=== PATIENT | female | born 1985 | race Caucasian/White ===

== ENCOUNTER 2018-06-14 19:04 | Emergency (ER) | payer OTHER ==
[~2018-06-14] VITALS: Ht 165.1 cm; Wt 118.2 kg
[2018-06-14 19:15] VITALS: TEMP 97.5
[2018-06-14 19:50] LABS: BASO # 0.1 (0.0-0.2); BASO % 0.6 % (0.0-2.0); EOS # 0.3 (0.0-0.7); EOS % 2.2 % (0-4.0); GRAN # 9.5 (1.4-6.5); HEMATOCRIT 41.9 % (37.0-47.0); HEMOGLOBIN 14.4 g/dl (12.5-16.0); LYMPH # 4.9 (1.2-3.4); LYMPH % 30.7 % (20.0-51.0); MEAN CELL VOLUME 88 fl (80.0-100.0); MEAN CORPUSCULAR HEMOGLOBIN 30 pg (27.0-31.0); MEAN CORPUSCULAR HGB CONC 34 g/dl (33.0-37.0); MEAN PLATELET VOLUME 9.7 fl (7.4-10.4); MONO % 6.2 % (1.7-9.3); PLATELET COUNT 345 K/mm3 (130-400); RED BLOOD COUNT 4.75 M/mm3 (4.10-5.30); REDCELL DISTRIBUTION WIDTH-CV 12.3 % (11.5-14.5)
[2018-06-14 20:26] LABS: ALBUMIN 3.6 gm/dL (3.5-5.0); BILIRUBIN,TOTAL 0.4 mg/dL (0.0-1.0); C-REACTIVE PROTEIN 2.1 mg/dL (0.0-0.9); CALCIUM 8.9 mg/dL (8.4-10.2); CREATININE, serum 0.87 mg/dL (0.52-1.25); POTASSIUM 3.3 mmol/L (3.4-5.0); TOTAL PROTEIN 6.7 gm/dL (6.4-8.2)
[2018-06-14 21:28] LABS: COLLECTION METHOD CLEAN CATCH
[2018-06-14 21:34] LABS: MUCOUS Present /lpf; PH 7 (5-8); SQUAMOUS EPITHELIAL 0-2 /hpf; URINE APPEARANCE Hazy; URINE BACTERIA None Seen /hpf; URINE BILIRUBIN Negative (NEGATIVE); URINE BLOOD 1+ (NEGATIVE); URINE COLOR Yellow; URINE GLUCOSE Negative (NEGATIVE); URINE KETONE Trace (NEGATIVE); URINE LEUKOCYTE ESTERASE Negative (NEGATIVE); URINE NITRATE Negative (NEGATIVE); URINE PROTEIN(semi-quant) 1+ (NEGATIVE); URINE RBC 0-2 /hpf; URINE UROBILINOGEN Negative (NEGATIVE)
[2018-06-14 22:34] VITALS: BP 117/80; PULSE 80
== END 2018-06-14 22:44 | disposition home or self-care (01) ==
LOC: COL.ER 19:04
PROVIDERS: Emergency Medicine
DX: I95.9 Hypotension, unspecified (principal); R55 Syncope and collapse; Z98.51 Tubal ligation status
CPT/HCPCS: J2550; J7030

== ENCOUNTER 2019-01-02 21:03 | Emergency (ER) | payer OTHER ==
[~2019-01-02] VITALS: Ht 167.6 cm; Wt 115.0 kg
[2019-01-02 21:09] VITALS: TEMP 97.3
[2019-01-02] MEDS ORDERED: VALIUM 5MG T5 MG/TAB PO (22:00)
[2019-01-02] MEDS ORDERED: ASHLYNA1 TAB PO (22:13)
[2019-01-02 22:58] VITALS: BP 122/80; PULSE 85
== END 2019-01-02 22:58 | disposition home or self-care (01) ==
LOC: COL.ER 21:03
DX: R42 Dizziness and giddiness (principal); Z98.51 Tubal ligation status

== ENCOUNTER 2021-09-05 16:44 | Inpatient (IN) | payer OTHER ==
[~2021-09-05] VITALS: Ht 165.1 cm; Wt 107.4 kg
[~2021-09-05 16:44] MED LIST: ASHLYNA1 TAB PO; VALIUM 5MG T5 MG/TAB PO
[2021-09-05 17:12] LABS: BASO % 0.1 % (0.0-2.0); GRAN # 9.3 K/mm3 (1.4-6.5); GRAN % 87.2 % (42.2-75.2); HEMATOCRIT 45.9 % (37.0-47.0); HEMOGLOBIN 16.1 g/dl (12.5-16.0); LYMPH # 0.9 K/mm3 (1.2-3.4); LYMPH % 8.7 % (20.0-51.0); MEAN CELL VOLUME 88 fl (80.0-100.0); MEAN CORPUSCULAR HEMOGLOBIN 31 pg (27-31); MEAN CORPUSCULAR HGB CONC 35 g/dl (33.0-37.0); MEAN PLATELET VOLUME 9.3 fl (7.4-10.4); MONO # 0.3 K/mm3 (0.1-0.6); MONO % 3.1 % (1.7-9.3); PLATELET COUNT 256 K/mm3 (130-400); RED BLOOD COUNT 5.24 M/mm3 (4.10-5.30); REDCELL DISTRIBUTION WIDTH-CV 11.7 % (11.5-14.5)
[2021-09-05 17:12] LABS: ARTERIAL BLD GAS O2 SATURATION 93.3 % (92-100); ARTERIAL BLD GAS TCO2 CT 21.4; ARTERIAL BLOOD GAS BASE EXCESS -1.6 (-2-2); ARTERIAL BLOOD GAS HCO3 20.5 meq/L (22-26); ARTERIAL BLOOD GAS PCO2 28.6 mmHg (35-45); ARTERIAL BLOOD GAS PO2 62.5 mmHg (80-100); ARTERIAL BLOOD GAS pH 7.47 (7.35-7.45)
[2021-09-05 17:30] LABS: ALANINE AMINOTRANSFERASE 111 U/L (0-55); ALBUMIN 2.8 gm/dL (3.5-5.0); ALKALINE PHOSPHATASE 121 U/L (40-150); ANION GAP 17 mmol/L (7-16); AST,SGOT 96 U/L (5-34); BILIRUBIN,TOTAL 0.9 mg/dL (0.2-1.2); BLOOD UREA NITROGEN 8 mg/dL (7-19); CALCIUM 8.8 mg/dL (8.4-10.2); CARBON DIOXIDE 20 mmol/L (22-29); CHLORIDE 102 mmol/L (98-107); CREATININE, serum 0.75 mg/dL (0.57-1.11); GLUCOSE 125 mg/dL (70-99); POTASSIUM 3.4 mmol/L (3.5-4.5); SODIUM 139 mmol/L (136-145); TOTAL PROTEIN 7.4 gm/dL (6.2-8.1)
[2021-09-05 17:42] LABS: TROPONIN-I < 0.010 ng/mL (0.00-0.033)
--- NOTE | 2021-09-05 21:15 | NUR ---
Brook Catalan APRN notified of critical d dimer, pt still in ED, will go to CT scan prior to arrival
[2021-09-05 21:19] LABS: INR 1.1 (0.8-3.0); PROTHROMBIN TIME 12.7 SECONDS (9.7-12.8)
[2021-09-05 21:29] LABS: C-REACTIVE PROTEIN 21.03 mg/dL (0.00-0.50); MAGNESIUM 2.3 mg/dL (1.6-2.6)
[2021-09-05 21:40] LABS: COLLECTION METHOD CLEAN CATCH
[2021-09-05 21:48] LABS: MUCOUS Present (NOT PRESENT); PH 6 (5-8); SQUAMOUS EPITHELIAL 0-2 /hpf (0-10); URINE APPEARANCE Clear (CLEAR/HAZY); URINE BACTERIA Occasional (NONE SEEN); URINE BILIRUBIN Negative (NEGATIVE); URINE BLOOD 1+ (NEGATIVE); URINE COLOR Yellow (YELLOW); URINE GLUCOSE Negative (NEGATIVE); URINE KETONE 1+ (NEGATIVE); URINE LEUKOCYTE ESTERASE Negative (NEGATIVE); URINE NITRATE Negative (NEGATIVE); URINE PROTEIN(semi-quant) 1+ (NEGATIVE); URINE UROBILINOGEN Negative (NEGATIVE)
[2021-09-05 22:00] VITALS: BP 126/72; PULSE 112; TEMP 98.8
[2021-09-05] MEDS ORDERED: SYNTHROID0.075 MG/T (22:40)
[2021-09-05] MEDS ORDERED: IMITREX100 MG PO ×2 (22:42→23:01)
[2021-09-05] MEDS ORDERED: SIMPESSE 0.15-1 EACH PO (23:00)
[2021-09-05] MEDS ORDERED: SYNTHROID0.075 MG/T PO (23:01)
[2021-09-06] VITALS (7 sets, daily range): BP systolic 120–146; BP diastolic 71–85; PULSE 95–149; TEMP 97.3–99.3
[2021-09-06 03:31] LABS: ARTERIAL BLD GAS O2 SATURATION 91.3 % (92-100); ARTERIAL BLD GAS TCO2 CT 23.4; ARTERIAL BLOOD GAS BASE EXCESS -0.3 (-2-2); ARTERIAL BLOOD GAS HCO3 22.5 meq/L (22-26); ARTERIAL BLOOD GAS PCO2 31.8 mmHg (35-45); ARTERIAL BLOOD GAS PO2 56.6 mmHg (80-100); ARTERIAL BLOOD GAS pH 7.47 (7.35-7.45)
--- NOTE | 2021-09-06 06:35 | NUR ---
Dr Franco notified of consult
[2021-09-06 07:08] LABS: BASO % 0.1 % (0.0-2.0); GRAN # 10.3 K/mm3 (1.4-6.5); GRAN % 87.8 % (42.2-75.2); HEMATOCRIT 40.9 % (37.0-47.0); LYMPH # 0.9 K/mm3 (1.2-3.4); LYMPH % 7.4 % (20.0-51.0); MEAN CELL VOLUME 88 fl (80.0-100.0); MEAN CORPUSCULAR HEMOGLOBIN 30 pg (27-31); MEAN CORPUSCULAR HGB CONC 35 g/dl (33.0-37.0); MEAN PLATELET VOLUME 9.5 fl (7.4-10.4); MONO # 0.4 K/mm3 (0.1-0.6); MONO % 3.7 % (1.7-9.3); PLATELET COUNT 279 K/mm3 (130-400); RED BLOOD COUNT 4.67 M/mm3 (4.10-5.30); REDCELL DISTRIBUTION WIDTH-CV 11.9 % (11.5-14.5)
--- NOTE | 2021-09-06 07:09 | NUR ---
pt admitted to room 305 from ED per cart @2200. CT scan done on way to floor. pt on 15L NRB mask, O2 sats 88-89%, RT notified, Brook Catalan APRN here to see pt, Airvo ordered. pt has LR @75cc/hr per RAC peripheral line. pt using BSC ad shirlene, freq stools this shift, soft, formed, no N/V/D. pt placed on bipap this am after ABG drawn. resting in bed, alert and oriented.
[2021-09-06 07:20] LABS: HEMOGLOBIN 14.1 g/dl (12.5-16.0)
[2021-09-06 07:40] LABS: ALBUMIN 2.4 gm/dL (3.5-5.0); BILIRUBIN,TOTAL 0.5 mg/dL (0.2-1.2); CALCIUM 8.3 mg/dL (8.4-10.2); CREATININE, serum 0.64 mg/dL (0.57-1.11); TOTAL PROTEIN 6.6 gm/dL (6.2-8.1)
--- NOTE | 2021-09-06 10:11 | NUR ---
Patient sitting in bed eating breakfast upon entering the room. Patient is currently on Airvo (60L @ 95%). Patient told this RN that when she gets up to use the BSC she goes into a "coughing fit". This RN instructed the patient to use her call light when she needs to use the BSC, especially if she starts to experience any dizziness or SOB. At this time, the plan is for the patient to move to ICU per Dr. Moreira.
--- NOTE | 2021-09-06 16:13 | NUR ---
RHYTHM CHANGE- SR/ST to possible AVIB RVR. Nurse notified EKG placed.
--- NOTE | 2021-09-06 19:15 | NUR ---
This RN received call at approx. 1615 that the patient was in A-fib. This RN checked the tele monitor and patient was in A-fib w/ RVR. Dr. Moreira was at the desk and notified. EKG was ordered. Patient was started on an amiodarone bolus by Cheyenne Sharma RN. Cardiology was consulted. Patient was switched from airvo to bipap to maintain sats above 90%. Patient instructed to call if she needs to use the BSC, and to not get up on her own.
[2021-09-07 00:38] VITALS: BP 142/82; PULSE 83; TEMP 97.7
[2021-09-07 04:19] LABS: ARTERIAL BLD GAS O2 SATURATION 97.9 % (92-100); ARTERIAL BLD GAS TCO2 CT 25.1; ARTERIAL BLOOD GAS BASE EXCESS 1.1 (-2-2); ARTERIAL BLOOD GAS PCO2 33.7 mmHg (35-45); ARTERIAL BLOOD GAS PO2 100.9 mmHg (80-100); ARTERIAL BLOOD GAS pH 7.47 (7.35-7.45)
[2021-09-07 05:03] VITALS: BP 144/79; PULSE 94; TEMP 98.5
--- NOTE | 2021-09-07 05:50 | NUR ---
Resting quietly in room, no c/o at this time, amiodarone gtt ongoing patient tolerating well, Bipap decreased to 70% FIO2 - patient tolerating well, no s/s of hypo/hyper glycemia, telemetry in use running NSR at this time, will continue to monitor.
[2021-09-07 07:24] LABS: HEMATOCRIT 42.6 % (37.0-47.0); HEMOGLOBIN 14.5 g/dl (12.5-16.0); MEAN CELL VOLUME 90 fl (80.0-100.0); MEAN CORPUSCULAR HEMOGLOBIN 31 pg (27-31); MEAN CORPUSCULAR HGB CONC 34 g/dl (33.0-37.0); MEAN PLATELET VOLUME 9.8 fl (7.4-10.4); PLATELET COUNT 339 K/mm3 (130-400); RED BLOOD COUNT 4.72 M/mm3 (4.10-5.30)
[2021-09-07 07:30] LABS: ALBUMIN 2.4 gm/dL (3.5-5.0); BILIRUBIN,TOTAL 0.4 mg/dL (0.2-1.2); CALCIUM 8.5 mg/dL (8.4-10.2); CREATININE, serum 0.68 mg/dL (0.57-1.11); POTASSIUM 3.6 mmol/L (3.5-4.5); TOTAL PROTEIN 6.5 gm/dL (6.2-8.1)
[2021-09-07 07:52] LABS: C-REACTIVE PROTEIN 9.6 mg/dL (0.00-0.50); MAGNESIUM 2.2 mg/dL (1.6-2.6)
[2021-09-07 08:30] VITALS: BP 142/85; PULSE 89; TEMP 98.2
[2021-09-07 09:44] LABS: BAND 10 % (0-10); LYMPHOCYTE 13 % (20.0-51.0); NEUTROPHILS 74 % (42.0-75.2); PLATELET ESTIMATE NORMAL (NORMAL)
--- NOTE | 2021-09-07 09:55 | NUR ---
Patient sitting in bed watching television upon entering the room. Patient assisted to the bathroom by this RN. All medications administered. Patient remains on amiodarone drip and is tolerating it well and in NSR. Patient on Airvo (60L @ 93%).
--- NOTE | 2021-09-07 10:49 | NUR ---
Quality Intern contacted patient by phone as [facility] Patient lives in [place] with her , Marco (ph#[phone]) and sees Dr. Bone for primary care. Patient obtains medications from [facility] [address] with no difficulties. Patient does not use any DME and is normally independent with ADLS. Patient is currently on 60 liters of oxygen but normally does not need it. Patient does not have Advance Directives and her would be her legal next of kin. Patient plans on returning home upon discharge. Discharge Plan: Home
[2021-09-07 11:43] VITALS: BP 120/71; PULSE 84; TEMP 98.6
[2021-09-07 15:44] VITALS: BP 136/80; PULSE 91; TEMP 98.3
--- NOTE | 2021-09-07 17:02 | NUR ---
Amiodarone gtt was discontinued. Patient tolerating PO medication well. Remains on airvo (60L @ 95%) .. Patient able to use BSC independtly but reminded to call if she begins to experience any SOB, dizziness, or heart palpitations.
[2021-09-07 20:05] VITALS: BP 141/80; PULSE 91; TEMP 98.2
--- NOTE | 2021-09-07 22:40 | NUR ---
Patient laying in bed and watching TV upon enter the room. Patient alert and oriented. Patient denies any pain or discomfort. Denies SOB, N/V, or diarrhea. Patient currently on Arivo 60L/95%. SPO2 97% on Airvo. No acute respiratory distress noted at this time. All scheduled meds given per NOV. Ice water provided per patient request. Call light in reach. Will continue to monitor.
[2021-09-08 00:28] VITALS: BP 133/88; PULSE 93; TEMP 98.2
[2021-09-08 03:37] VITALS: BP 133/72; PULSE 89; TEMP 97.4
--- NOTE | 2021-09-08 06:59 | NUR ---
PATIENT PLACED ON AIRVO AT 94% AND FLOW OF 60 LPM. APPREARS COMFORTABLE.
[2021-09-08 07:02] LABS: HEMATOCRIT 41.9 % (37.0-47.0); HEMOGLOBIN 14.2 g/dl (12.5-16.0); MEAN CELL VOLUME 91 fl (80.0-100.0); MEAN CORPUSCULAR HEMOGLOBIN 31 pg (27-31); MEAN CORPUSCULAR HGB CONC 34 g/dl (33.0-37.0); MEAN PLATELET VOLUME 9.4 fl (7.4-10.4); PLATELET COUNT 386 K/mm3 (130-400); RED BLOOD COUNT 4.61 M/mm3 (4.10-5.30); REDCELL DISTRIBUTION WIDTH-CV 12.3 % (11.5-14.5)
[2021-09-08 07:26] LABS: ALBUMIN 2.4 gm/dL (3.5-5.0); BILIRUBIN,TOTAL 0.5 mg/dL (0.2-1.2); C-REACTIVE PROTEIN 5.21 mg/dL (0.00-0.50); CALCIUM 8.3 mg/dL (8.4-10.2); CREATININE, serum 0.67 mg/dL (0.57-1.11); TOTAL PROTEIN 6.1 gm/dL (6.2-8.1)
[2021-09-08 07:57] LABS: LYMPHOCYTE 19 % (20.0-51.0); NEUTROPHILS 77 % (42.0-75.2); PLATELET ESTIMATE NORMAL (NORMAL)
[2021-09-08 08:36] VITALS: BP 124/66; PULSE 96; TEMP 98.4
[2021-09-08 12:17] VITALS: BP 127/81; PULSE 79; TEMP 97.6
[2021-09-08 16:18] VITALS: BP 152/86; PULSE 84; TEMP 97.5
[2021-09-08 19:55] VITALS: BP 139/74; PULSE 88; TEMP 97.6
--- NOTE | 2021-09-08 21:54 | NUR ---
Patient sitting up in bed and watching TV upon enter the room. Patient A/Ox4. Patient denies chest pain, SOB, N/V or diarrhea. Patient states she is eating well and drinking enough fluid. Patient currently on Airvo 60L/95%. Breathing even and unlabored while at rest. No acute respiratory distress noted at this time. All scheduled meds given per NOV. Call light in reach. Will continue to monitor.
[2021-09-09 00:43] VITALS: BP 126/85; PULSE 79; TEMP 98.3
[2021-09-09 05:22] VITALS: BP 121/70; PULSE 74; TEMP 98
--- NOTE | 2021-09-09 05:45 | NUR ---
Patient on Bipap throughout the night. VS stable. No acute distress noted throughout the night. Call light in reach. Will continue to monitor.
[2021-09-09 06:01] LABS: ARTERIAL BLD GAS O2 SATURATION 97.8 % (92-100); ARTERIAL BLD GAS TCO2 CT 21.5; ARTERIAL BLOOD GAS BASE EXCESS -3.1 (-2-2); ARTERIAL BLOOD GAS HCO3 20.4 meq/L (22-26); ARTERIAL BLOOD GAS PCO2 32.7 mmHg (35-45); ARTERIAL BLOOD GAS PO2 102.8 mmHg (80-100); ARTERIAL BLOOD GAS pH 7.41 (7.35-7.45)
[2021-09-09 06:42] LABS: HEMATOCRIT 40.9 % (37.0-47.0); HEMOGLOBIN 13.7 g/dl (12.5-16.0); MEAN CELL VOLUME 90 fl (80.0-100.0); MEAN CORPUSCULAR HEMOGLOBIN 30 pg (27-31); MEAN CORPUSCULAR HGB CONC 34 g/dl (33.0-37.0); MEAN PLATELET VOLUME 9.3 fl (7.4-10.4); PLATELET COUNT 418 K/mm3 (130-400); RED BLOOD COUNT 4.54 M/mm3 (4.10-5.30); REDCELL DISTRIBUTION WIDTH-CV 11.9 % (11.5-14.5)
[2021-09-09 06:47] LABS: ALBUMIN 2.3 gm/dL (3.5-5.0); BILIRUBIN,TOTAL 0.5 mg/dL (0.2-1.2); C-REACTIVE PROTEIN 3.09 mg/dL (0.00-0.50); CALCIUM 8.2 mg/dL (8.4-10.2); CREATININE, serum 0.64 mg/dL (0.57-1.11); TOTAL PROTEIN 5.8 gm/dL (6.2-8.1)
[2021-09-09 07:23] LABS: BAND 3 % (0-10); LYMPHOCYTE 14 % (20.0-51.0); NEUTROPHILS 79 % (42.0-75.2); PLATELET ESTIMATE INCREASED (NORMAL)
[2021-09-09 08:33] VITALS: BP 141/74; PULSE 85; TEMP 97.6
[2021-09-09 11:07] VITALS: BP 108/65; PULSE 79; TEMP 98.3
[2021-09-09 17:08] VITALS: BP 140/68; PULSE 81; TEMP 98
[2021-09-09 19:29] VITALS: BP 132/64; PULSE 92; TEMP 97.8
--- NOTE | 2021-09-09 20:44 | NUR ---
Patient sitting up in bed and watching TV upon enter the room. Patient A/Ox4. Patient denies any pain or discomfort. Denies SOB while at rest. Patient currently on Airvo 60L/95%. No acute respiratory distress noted at this time. Patient states tolerating PO intake. No N/V. All scheduled meds given per NOV. Call light in reach. Will continue to monitor.
[2021-09-10] VITALS (7 sets, daily range): BP systolic 112–140; BP diastolic 61–74; PULSE 69–80; TEMP 97.8–98.7
--- NOTE | 2021-09-10 06:09 | NUR ---
Patient remains on Bipap over the night. VS stable. No acute distress noted. Call light in reach.
[2021-09-10 07:36] LABS: HEMATOCRIT 42.1 % (37.0-47.0); HEMOGLOBIN 14.3 g/dl (12.5-16.0); MEAN CELL VOLUME 90 fl (80.0-100.0); MEAN CORPUSCULAR HEMOGLOBIN 31 pg (27-31); MEAN CORPUSCULAR HGB CONC 34 g/dl (33.0-37.0); MEAN PLATELET VOLUME 9.2 fl (7.4-10.4); PLATELET COUNT 358 K/mm3 (130-400); RED BLOOD COUNT 4.68 M/mm3 (4.10-5.30)
[2021-09-10 07:54] LABS: ALBUMIN 2.3 gm/dL (3.5-5.0); BILIRUBIN,TOTAL 0.5 mg/dL (0.2-1.2); CALCIUM 8.4 mg/dL (8.4-10.2); CREATININE, serum 0.66 mg/dL (0.57-1.11); POTASSIUM 4.4 mmol/L (3.5-4.5); TOTAL PROTEIN 5.6 gm/dL (6.2-8.1)
[2021-09-10 08:42] LABS: BAND 4 % (0-10); NEUTROPHILS 70 % (42.0-75.2)
[2021-09-10 08:43] LABS: LYMPHOCYTE 19 % (20.0-51.0); PLATELET ESTIMATE NORMAL (NORMAL)
--- NOTE | 2021-09-10 09:30 | NUR ---
PT ALERT AND ORIENTED IN ROOM. PT BASES HAVE FINE CRACKLES AUSCULTATED BILATERALLY. PT UPPER LOBES CLEAR TO AUSCULTATION. PT CURRENTLY ON AIRVO. PT S1,S2 SOUNDS AUSCULTATED. PT PULSES 2+ IN ALL EXTREMITIES, CAP REFILL <3S. PT ABLE TO AMBULATE INDEPENDENTLY TO BEDSIDE COMMODE AND STAND. PT STATES FEELING BETTER THAN THE PAST FEW DAYS, STILL REPORTING ONLY MOVING AROUND BED. PT CENTRAL LINE FLUSHING, NO BLOOD RETURN. PT CALL LIGHT WITHIN REACH, DENIES PAIN AT THIS TIME.
--- NOTE | 2021-09-10 11:27 | NUR ---
PT BLOOD PRESSURE ELEVATED, PT STATES THEY HAD BEEN MOVING AROUND AND STANDING PRIOR TO VITAL SIGN COLLECTION.
--- NOTE | 2021-09-10 14:02 | NUR ---
CATHFLO REMOVED AT THIS TIME. BLOOD RETURN NOTED IN BOTH PORTS.
--- NOTE | 2021-09-10 16:34 | NUR ---
PT RESPIRATIONS ELEVATED, DENIES SOA. NO DISTRESS NOTED.
--- NOTE | 2021-09-10 19:56 | NUR ---
Pt continuing on plan of care. Pt had uneventful day, remained on Airvo. Pt vitals remained stable this shift, no significant alteration noted. Report given to night manager.
[2021-09-11] VITALS (7 sets, daily range): BP systolic 110–127; BP diastolic 56–78; PULSE 69–88; TEMP 97.6–98.4
--- NOTE | 2021-09-11 06:43 | NUR ---
ON BIPAP OVER NIGHT, FIO2 70%, RATE OF 20, UP TO BSC ON HER OWN, BGM WNL THIS SHIFT, TUMS STARTED DURING THE NOC FOR INDIGESTION.
[2021-09-11 07:33] LABS: CALCIUM 8.4 mg/dL (8.4-10.2); CREATININE, serum 0.65 mg/dL (0.57-1.11); POTASSIUM 4.2 mmol/L (3.5-4.5)
[2021-09-11 07:35] LABS: HEMATOCRIT 42.9 % (37.0-47.0); HEMOGLOBIN 14.6 g/dl (12.5-16.0); MEAN CELL VOLUME 89 fl (80.0-100.0); MEAN CORPUSCULAR HEMOGLOBIN 30 pg (27-31); MEAN CORPUSCULAR HGB CONC 34 g/dl (33.0-37.0); PLATELET COUNT 447 K/mm3 (130-400); RED BLOOD COUNT 4.81 M/mm3 (4.10-5.30); REDCELL DISTRIBUTION WIDTH-CV 11.9 % (11.5-14.5)
[2021-09-11 08:42] LABS: BAND 1 % (0-10); EOSINOPHIL 2 % (0-4); LYMPHOCYTE 18 % (20.0-51.0); NEUTROPHILS 77 % (42.0-75.2)
[2021-09-11 08:43] LABS: PLATELET ESTIMATE DECREASED (NORMAL)
--- NOTE | 2021-09-11 09:45 | NUR ---
PT ALERT AND ORIENTED IN ROOM. PT ABLE TO AMBULATE TO BEDSIDE COMMODE INDEPENDENLTY. PT HAS CLEAR UPPER LOBES, FINE CRACKLES AUSCULTATED IN BASES BILATERALLY. PT S1,S2 SOUNDS HEARD, PULSES 2+ IN ALL EXTREMITIES. PT HAS ACTIVE BOWEL SOUNDS. CALL LIGHT WITHIN REACH.
--- NOTE | 2021-09-11 18:51 | NUR ---
PT CONTINUING ON PLAN OF CARE. PT MEDICATIONS CONTINUED PER ORDERS. PT VITALS REMAINED STABLE THIS SHIFT, NO SIGNIFICANT CHANGES IN PT STATUS THIS SHIFT. CALL LIGHT WITHIN REACH.
[2021-09-12 05:03] VITALS: BP 119/69; PULSE 71; TEMP 97.8
[2021-09-12 07:25] LABS: CALCIUM 8.4 mg/dL (8.4-10.2); CREATININE, serum 0.68 mg/dL (0.57-1.11); POTASSIUM 4.4 mmol/L (3.5-4.5)
[2021-09-12 07:28] LABS: HEMATOCRIT 44.3 % (37.0-47.0); HEMOGLOBIN 15.3 g/dl (12.5-16.0); MEAN CELL VOLUME 89 fl (80.0-100.0); MEAN CORPUSCULAR HEMOGLOBIN 31 pg (27-31); MEAN CORPUSCULAR HGB CONC 35 g/dl (33.0-37.0); MEAN PLATELET VOLUME 8.9 fl (7.4-10.4); PLATELET COUNT 452 K/mm3 (130-400); REDCELL DISTRIBUTION WIDTH-CV 11.9 % (11.5-14.5)
[2021-09-12 09:14] VITALS: BP 110/58; PULSE 72; TEMP 98
--- NOTE | 2021-09-12 09:31 | NUR ---
PT ALERT AND ORIENTED IN ROOM. STATES SOA WITH EXERTION OR TALKING ON THE PHONE TOO MUCH. PT LUNGS CLEAR TO AUSCULTATION. S1,S2 AUSCULTATED, PULSES 2+ IN ALL EXTREMITIES. PT CAP REFILL <3S. PT ABDOMEN SOFT, NON-TENDER. PT CALL LIGHT WITHIN REACH, BREAKFAST TRAY GIVEN.
[2021-09-12 10:09] LABS: BAND 5 % (0-10); LYMPHOCYTE 17 % (20.0-51.0); NEUTROPHILS 71 % (42.0-75.2); PLATELET ESTIMATE INCREASED (NORMAL)
[2021-09-12 12:46] VITALS: BP 116/61; PULSE 70; TEMP 97.7
[2021-09-12 15:54] VITALS: BP 118/65; PULSE 73; TEMP 98.3
--- NOTE | 2021-09-12 19:04 | NUR ---
PT CONTINUES ON PLAN OF CARE. NO SIGNIFICANT CHANGES IN PT STATUS NOTED THIS SHIFT. ABLE TO CALL FOR NEEDS.
[2021-09-12 20:22] VITALS: BP 119/71; PULSE 84; TEMP 98
[2021-09-13 00:08] VITALS: BP 108/68; PULSE 73; TEMP 98.3
[2021-09-13 04:50] VITALS: BP 109/55; PULSE 69; TEMP 98.3
[2021-09-13 06:37] LABS: HEMATOCRIT 44.5 % (37.0-47.0); HEMOGLOBIN 15.5 g/dl (12.5-16.0); MEAN CELL VOLUME 89 fl (80.0-100.0); MEAN CORPUSCULAR HEMOGLOBIN 31 pg (27-31); MEAN CORPUSCULAR HGB CONC 35 g/dl (33.0-37.0); MEAN PLATELET VOLUME 8.9 fl (7.4-10.4); PLATELET COUNT 420 K/mm3 (130-400); RED BLOOD COUNT 5.02 M/mm3 (4.10-5.30); REDCELL DISTRIBUTION WIDTH-CV 11.9 % (11.5-14.5)
[2021-09-13 06:52] LABS: CALCIUM 8.3 mg/dL (8.4-10.2); CREATININE, serum 0.71 mg/dL (0.57-1.11); POTASSIUM 4.4 mmol/L (3.5-4.5)
[2021-09-13 06:58] LABS: BAND 4 % (0-10); EOSINOPHIL 2 % (0-4); LYMPHOCYTE 19 % (20.0-51.0); NEUTROPHILS 69 % (42.0-75.2); PLATELET ESTIMATE NORMAL (NORMAL)
--- NOTE | 2021-09-13 07:13 | NUR ---
pt on bipap during the noc and 70%, airvo while awake 60L 90%, up ad shirlene in room, calls for assistance as needed. am labs drawn per PICC
[2021-09-13 08:20] VITALS: BP 116/57; PULSE 72; TEMP 97.6
--- NOTE | 2021-09-13 10:57 | NUR ---
PT ALERT AND ORIENTED IN ROOM. PT HAS CLEAR LUNGS TO AUSCULTATION. PT S1,S2 SOUNDS AUSCULTATED. PT PULSES 2+ IN ALL EXTREMITIES, CAP REFILL <3S. PT ABLE TO USE BEDSIDE COMMODE AND DANGLE AT EDGE OF BED INDEPENDENTLY. DENIES PAIN AT THIS TIME. CALL LIGHT WITHIN REACH.
[2021-09-13 12:37] VITALS: BP 122/72; PULSE 90; TEMP 97.6
[2021-09-13 15:45] VITALS: BP 122/72; PULSE 85; TEMP 98.1
--- NOTE | 2021-09-13 16:33 | NUR ---
Senior Benefits Specialist collaborated with Hospitalist who advised he spoke with patient about [facility] referral. Patient remains on high flow oxygen. RONNIE faxed referral to Jean Carlos at [facility]. Discharge Plan: [facility]
--- NOTE | 2021-09-13 17:18 | NUR ---
PT CONTINUES ON PLAN OF CARE. DENIES PAIN THIS SHIFT. VITAL SIGNS STABLE THIS SHIFT. NO SIGNIFICANT CHANGES NOTED IN PT STATUS. PT ABLE TO CALL FOR NEEDS. RECEIVING MEDICATIONS PER ORDERS.
[2021-09-13 20:10] VITALS: BP 124/49; PULSE 91; TEMP 98.1
[2021-09-14] VITALS (8 sets, daily range): BP systolic 101–126; BP diastolic 47–72; PULSE 71–85; TEMP 97.6–98.6
[2021-09-14 06:56] LABS: HEMATOCRIT 44.4 % (37.0-47.0); HEMOGLOBIN 14.9 g/dl (12.5-16.0); MEAN CELL VOLUME 92 fl (80.0-100.0); MEAN CORPUSCULAR HEMOGLOBIN 31 pg (27-31); MEAN CORPUSCULAR HGB CONC 34 g/dl (33.0-37.0); PLATELET COUNT 416 K/mm3 (130-400); RED BLOOD COUNT 4.85 M/mm3 (4.10-5.30); REDCELL DISTRIBUTION WIDTH-CV 12.2 % (11.5-14.5)
[2021-09-14 07:04] LABS: CREATININE, serum 0.68 mg/dL (0.57-1.11); POTASSIUM 4.2 mmol/L (3.5-4.5)
--- NOTE | 2021-09-14 07:18 | NUR ---
REPORT RECEIVED FROM LOAN HERZOG,PT RESTING IN BED AT THIS TIME. PT CURRENTLY ON BIPAP DENIES ANY NEEDS AT THIS TIME
--- NOTE | 2021-09-14 07:23 | NUR ---
pt on bipap while sleeping, Airvo when awake, up ad shirlene in room, no c/o SOA, pain or discomfort, PICC line patent/secure in [facility].
[2021-09-14 07:49] LABS: BAND 6 % (0-10); EOSINOPHIL 1 % (0-4); LYMPHOCYTE 22 % (20.0-51.0); METAMYELOCYTE 1 % (0-0); NEUTROPHILS 62 % (42.0-75.2)
[2021-09-14 07:50] LABS: PLATELET ESTIMATE NORMAL (NORMAL)
--- NOTE | 2021-09-14 13:29 | NUR ---
Clinical updates faxed to Jean Carlos at [facility]. Jean Carlos is willing to accept and is goingto start the insurance authorization.
--- NOTE | 2021-09-14 18:53 | NUR ---
PT A/OX4, DENIES ANY NEEDS REMAIN ON 60L AIRVO, NSR ON TELE.
[2021-09-15 00:11] VITALS: BP 122/63; PULSE 88; TEMP 97.4
[2021-09-15 03:50] VITALS: BP 118/68; PULSE 75; TEMP 97.5
[2021-09-15 06:53] LABS: HEMATOCRIT 41.3 % (37.0-47.0); MEAN CELL VOLUME 91 fl (80.0-100.0); MEAN CORPUSCULAR HEMOGLOBIN 31 pg (27-31); MEAN CORPUSCULAR HGB CONC 34 g/dl (33.0-37.0); MEAN PLATELET VOLUME 8.9 fl (7.4-10.4); PLATELET COUNT 368 K/mm3 (130-400); RED BLOOD COUNT 4.52 M/mm3 (4.10-5.30); REDCELL DISTRIBUTION WIDTH-CV 12.3 % (11.5-14.5)
--- NOTE | 2021-09-15 06:56 | NUR ---
PT APPEARS TO REST WELL DURING NIGHT, BIPAP IN PLACE, LIES ON HER RIGHT SIDE. PT AWAKENS EASILY WHEN THIS NURSE ENTERS ROOM. BLOOD FOR LABS ARE DRAWN FROM PICC LINE, FLUSHES EASILY WITH GOOD BLOOD RETURN. PT IS GIVEN FRESH ICE WATER. PT IS PLEASANT, REQUESTS PHONE NUMBER OF RESOURCE PROGRAM TEACHER FOR HER TO CALL LATER, WILL PASS ON TO ONCOMING DAY SHIFT. PT DENIES OTHER NEEDS. CALL LIGHT WITHIN REACH.
[2021-09-15 07:08] LABS: CALCIUM 7.9 mg/dL (8.4-10.2); CREATININE, serum 0.65 mg/dL (0.57-1.11); POTASSIUM 4.1 mmol/L (3.5-4.5)
[2021-09-15 07:36] LABS: BAND 5 % (0-10); NEUTROPHILS 61 % (42.0-75.2)
[2021-09-15 07:37] LABS: LYMPHOCYTE 26 % (20.0-51.0); PLATELET ESTIMATE NORMAL (NORMAL)
[2021-09-15 08:21] VITALS: BP 117/63; PULSE 82; TEMP 97.7
--- NOTE | 2021-09-15 10:04 | NUR ---
Assessment complete. Pt sitting up in bed. Denies pain or shortness of breath. States that she's feeling much better this morning. O2 at 6l/nc. Pt reports that she and her would like to speak with case management regarding FMLA paperwork. Denies other needs. Call light within reach.
[2021-09-15 11:42] VITALS: BP 113/66; PULSE 84; TEMP 97.6
[2021-09-15 16:54] VITALS: BP 122/65; PULSE 88; TEMP 98.2
[2021-09-15 23:45] VITALS: BP 116/68; PULSE 69; TEMP 98.1
[2021-09-16 04:00] VITALS: BP 117/77; PULSE 66; TEMP 97.6
--- NOTE | 2021-09-16 05:45 | NUR ---
PT HAS MOSTLY SLEPT THROUGH NIGHT. CPAP IS ON, PT LIES ON LEFT SIDE. BLOOD FOR LABS HAVE BEEN DRAWN THROUGH PICC. IV ANTIBIOTICS INFUSE THROUGH PICC. PT IS GIVEN FRESH ICE WATER. DENIES OTHER NEEDS, PAIN OR SOB. RESPIRATIONS UNLABORED. CALL LIGHT WITHIN REACH.
[2021-09-16 07:32] LABS: HEMATOCRIT 41.7 % (37.0-47.0); HEMOGLOBIN 13.9 g/dl (12.5-16.0); MEAN CELL VOLUME 93 fl (80.0-100.0); MEAN CORPUSCULAR HEMOGLOBIN 31 pg (27-31); MEAN CORPUSCULAR HGB CONC 33 g/dl (33.0-37.0); PLATELET COUNT 327 K/mm3 (130-400); RED BLOOD COUNT 4.49 M/mm3 (4.10-5.30); REDCELL DISTRIBUTION WIDTH-CV 12.4 % (11.5-14.5)
[2021-09-16 07:40] LABS: ALBUMIN 2.7 gm/dL (3.5-5.0); BILIRUBIN,DIRECT 0.3 mg/dL (0.0-0.5); BILIRUBIN,TOTAL 0.8 mg/dL (0.2-1.2); CALCIUM 7.9 mg/dL (8.4-10.2); CREATININE, serum 0.62 mg/dL (0.57-1.11)
[2021-09-16 07:57] VITALS: BP 124/55; PULSE 73; TEMP 97.6
[2021-09-16 08:12] LABS: BAND 3 % (0-10); EOSINOPHIL 3 % (0-4); LYMPHOCYTE 31 % (20.0-51.0); NEUTROPHILS 54 % (42.0-75.2); PLATELET ESTIMATE NORMAL (NORMAL)
--- NOTE | 2021-09-16 10:13 | NUR ---
Assessment complete. Pt sitting up in bed. Denies pain or shortness of breath. States that she continues to feel better. Denies needs at this time. Call light within reach.
[2021-09-16 12:31] VITALS: BP 103/60; PULSE 71; TEMP 98.3
[2021-09-16 16:00] VITALS: BP 115/54; PULSE 88; TEMP 97.6
--- NOTE | 2021-09-16 17:38 | NUR ---
RESUMED CARE FROM WILD HERZOG, WILL HANG ANX THAT IS DUE
[2021-09-16 20:15] VITALS: BP 136/68; PULSE 104; TEMP 98.3
[2021-09-16 23:22] VITALS: BP 130/64; PULSE 80; TEMP 97.6
--- NOTE | 2021-09-17 01:33 | NUR ---
ASSESSMENT COMPLETE FOR THIS SHIFT. PT COOPERATIVE WITH CARES. PT RESTING IN BED WATCHING TV. PT DENIES PAIN, PALPITATIONS, SOB OR DIZZINESS. HOWEVER, WHEN PRESSROOM SUPERVISOR WENT IN TO GET PT'S MIDNIGHT VS, PT'S O2 STATS WAS AT 88% ON 4L OF O2. PT BUMPED BACK UP TO 5L OF O2, O2 UP TO 91%. O2 STATS AT 97% AT 0130HRS WHEN CHECKED AGAIN. WILL CONTINUE TO MONITOR. PT STATES SHE HAS NO OTHER NEEDS AT THIS TIME. CALL LIGHT WITHIN REACH.
[2021-09-17 04:43] VITALS: BP 129/64; PULSE 85; TEMP 98
[2021-09-17 08:28] VITALS: BP 127/69; PULSE 91; TEMP 97.9
[2021-09-17 08:29] VITALS: BP 131/72; PULSE 93; TEMP 97.5
[2021-09-17] MEDS ORDERED: TAMBOCOR 1100 MG/TAB PO (09:09)
[2021-09-17] MEDS ORDERED: ELIQUIS 5MG PO (09:09)
[2021-09-17] MEDS ORDERED: TOPROL XL 25MG25 MG PO (09:10)
[2021-09-17] MEDS ORDERED: OXYGEN NASAL.CANN (09:11)
--- NOTE | 2021-09-17 09:16 | NUR ---
Patient sitting up in bed upon entering the room. Patient is doing well and hopeful that she will go home. Patient is currently on 4L O2 via NC and is tolerating it well. Patient is independent in the room, call light is w/in reach.
[2021-09-17] MEDS ORDERED: PROAIR HFA0.09 MG/AC IH (09:53)
[2021-09-17 11:39] VITALS: BP 126/74; PULSE 90; TEMP 98.7
--- NOTE | 2021-09-17 11:56 | NUR ---
wine cellar worker spoke with patient as she is discharging home this date and will need home oxygen at 5L. Patient will utilize [facility] and worker gave a referral and faxed orders/clinical information. Reinaldo with home medical and contacted patient's spouse and is making arrangements for delivery of portable unit to the hospital and home unit.
--- NOTE | 2021-09-17 14:01 | NUR ---
Patient discharged. PICC removed by ROSENDA Huerta. Patient had no concerns at time of discharge. Telemetry discontinued by this RN.
== END 2021-09-17 14:00 | disposition home or self-care (01) | DRG 177 ==
LOC: COL.ER 16:44 → MEDICAL 19:17
PROVIDERS: Emergency Medicine; Internal Medicine Pulmonary Disease; Nurse Practitioner Family; Student in an Organized Health Care Education/Training Program; ADMIT Internal Medicine
PROC: XW033E5 Introduction of Remdesivir Anti-infective into Peripheral Vein, Percutaneous Approach, New Technology Group 5 (ICD-10-PCS; 2021-09-05)
PROC: 5A0945A Assistance with Respiratory Ventilation, 24-96 Consecutive Hours, High Flow/Velocity Cannula (ICD-10-PCS; 2021-09-05)
PROC: 02HV33Z Insertion of Infusion Device into Superior Vena Cava, Percutaneous Approach (ICD-10-PCS; principal; 2021-09-06)
PROC: 5A09557 Assistance with Respiratory Ventilation, Greater than 96 Consecutive Hours, Continuous Positive Airway Pressure (ICD-10-PCS; 2021-09-06)
DX: U07.1 COVID-19 (principal); J12.82 Pneumonia due to coronavirus disease 2019; J96.01 Acute respiratory failure with hypoxia; E87.2 Acidosis; Z68.41 Body mass index [BMI] 40.0-44.9, adult; E66.01 Morbid (severe) obesity due to excess calories; E03.9 Hypothyroidism, unspecified; G43.909 Migraine, unspecified, not intractable, without status migrainosus; R73.9 Hyperglycemia, unspecified; E87.6 Hypokalemia; I48.91 Unspecified atrial fibrillation; Z88.0 Allergy status to penicillin
CPT/HCPCS: 99222-AI; 99232-AI; 99233-AI; 99239; C1751; J0282; J0692; J0696; J1100; J1650; J2997; J3480; J7050; J7060; J7120; J8540; Q0249; Q9967